=== PATIENT | female | born 1965 | race Caucasian/White ===

== ENCOUNTER 2017-11-19 19:14 | Inpatient (IN) | payer OTHER ==
[~2017-11-19] VITALS: Ht 154.9 cm; Wt 46.7 kg
--- NOTE | 2017-11-19 19:38 | ED PSYCHIATRIC COMPLAINT ---
See Addendum History of Present Illness General Chief Complaint: ETOH/Drug Related Complaint Stated Complaint: ?OVERDOSE ON BACLOPHEN AND ALCOHOL Source: patient, family, old records Exam Limitations: intoxication Vital Signs & Intake/Output Vital Signs & Intake/Output Vital Signs Date Time Temp Pulse Resp B/P B/P Pulse O2 O2 Flow FiO2 Mean Ox Delivery Rate 11/20 1510 97.8 92 18 138/83 97 Room Air 11/20 1220 98.9 107 16 143/85 96 Room Air 11/20 1009 98.2 95 18 143/87 98 Room Air 11/20 0801 98.6 96 18 133/83 11/20 0801 98.6 96 18 133/83 98 Room Air 11/20 0606 98.3 92 18 102/57 98 Room Air 11/20 0016 97.4 84 20 105/59 94 Room Air 11/19 2157 98.4 83 18 138/77 95 Room Air 11/19 1920 152/94 11/19 1917 97.2 97 15 150/101 95 Room Air ED Intake and Output 11/20 0000 11/19 1200 Intake Total Output Total 800 Balance -800 Output, Urine 800 Patient 110 lb Weight Weight Reported by Patient Measurement Method Reconcile Medications Baclofen 10 MG TABLET 1 TAB PO TID PAIN CONTROL (Reported) Bupropion HCl (Bupropion XL) 150 MG TAB.ER.24H 300 MG PO DAILY MOOD STABILITY (Reported) Escitalopram Oxalate 20 MG TABLET 1 TAB PO D MOOD STABILITY (Reported) Lidocaine 5 % ADH..PATCH 1 UNIT TOP DAILY PAIN CONTROL (Reported) Metoprolol Tartrate 50 MG TABLET 1 TAB PO DAILY AC HEART HEALTH (Reported) Mirabegron (Myrbetriq) 25 MG TAB.ER.24H 1 TAB PO DAILY BLADDER HEALTH ( Reported) Pregabalin (Lyrica) 150 MG CAPSULE 1 CAP PO BID PAIN CONTROL (Reported) Triage Note: PT BROUGHT TO ED BY WITH QUESTION OF BACLOFEN OVERDOSE. STATES BOTTLE FILLED TWO WEEKS AGO WITH 90 TABLETS IS EMPTY. PT ADMITS TO ETOH USE TODAY. DENIES SI. HX SI ATTEMPTS IN THE PAST. Triage Nurses Notes Reviewed? yes HPI: Patient is having increasing depression and thoughts of for assistance. Patient is suicidal ideations. Patient has been sober for the past few months but recently started drinking again. Patient was prescribed 90 baclofen 2 weeks ago and the noticed that the bottle was empty today. Patient just feels that she does not deserve to live anymore. Patient denies any homicidal ideations. Patient injured her back when she jumped off the roof back in May. (Ju CHEUNG,Mario Gonzalez) Allergies Coded Allergies: erythromycin base (Intermediate, GI DISTRESS 11/20/17) (Gale CHEUNG,Parth Danielle) Past History Travel History Traveled to [place] past 21 day No Medical History Any Pertinent Medical History? see below for history Cardiovascular: hypertension History of MRSA: No History of VRE: No History of CDIFF: No Surgical History Surgical History: non-contributory Psychosocial History Who do you live with Family Services at Home None What is your primary language Cook Islander Tobacco Use: Never used ETOH Use: heavy use Family History Hx Contributory? No (Ju CHEUNG,Mario Gonzalez) Review of Systems Review of Systems Constitutional: Reports: no symptoms. EENTM: Reports: no symptoms. Respiratory: Reports: no symptoms. Cardiovascular: Reports: no symptoms. GI: Reports: no symptoms. Genitourinary: Reports: no symptoms. Musculoskeletal: Reports: no symptoms. Skin: Reports: no symptoms. Neurological/Psychological: Reports: see HPI, depressed. Hematologic/Endocrine: Reports: no symptoms. Immunologic/Allergic: Reports: no symptoms. All Other Systems: Reviewed and Negative (Ju CHEUNG,Mario Gonzalez) Physical Exam Physical Exam General Appearance: well developed/nourished, alert, awake, anxious, moderate distress, intoxicated Head: atraumatic Eyes: Bilateral: PERRL, EOMI. Ears, Nose, Throat: normal pharynx, normal ENT inspection, hearing grossly normal Neck: normal inspection, supple, full range of motion Respiratory: normal breath sounds, chest non-tender, no respiratory distress, lungs clear Cardiovascular: regular rate/rhythm, normal peripheral pulses Gastrointestinal: normal bowel sounds, soft, non-tender Extremities: normal range of motion Neurological/Psychiatric: no motor/sensory deficits, agitated, alert, oriented x 3 Appearance/Memory/Insight: appropriate appearance, appropriate insight Behavoir/Eye Contact/Speech: cooperative, normal speech, good eye contact Thoughts/Hallucinations: normal thought pattern, no apparent hallucination Skin: intact, normal color, warm/dry SAD PERSONS Done? CRISIS CONSULT OBTAINED (Ju CHEUNG,Mario Gonzalez) Progress Differential Diagnosis: drug intoxication, drug overdose, drug withdrawal, electrolyte abnormality Plan of Care: Orders Procedure Date/time Status Regular Diet 11/20 B Active Alternative Nursing Therapy 11/20 08 Active Continuous Observation Monitor 11/19 1937 Active ED CRISIS PSYCH CONSULT 11/19 1937 Active EKG 11/19 1922 Active ACETOMINOPHEN 11/19 1917 Complete SALICYLATE 11/19 1917 Complete URINE DRUG SCREEN FOR ER ONLY 11/20 1915 Complete ETHANOL 11/20 1915 Complete COMPREHENSIVE METABOLIC PANEL 11/20 1915 Complete CBC WITHOUT DIFFERENTIAL 11/20 1915 Complete Laboratory Tests 11/19/172046: Urine Opiates Screen < 100, Methadone Screen 59, Barbiturate Screen < 60, Ur Phencyclidine Scrn < 6.00, Amphetamines Screen 179, U Benzodiazepines Scrn < 85, Urine Cocaine Screen < 50, Urine Cannabis Screen < 5.00 11/19/171929: Serum Alcohol 352.0 11/19/171929: Anion Gap 21 H, Estimated GFR > 60, BUN/Creatinine Ratio 16.7, Glucose 111 H, Calcium 9.6, Total Bilirubin 0.3, AST 57 H, ALT 41, Alkaline Phosphatase 92, Total Protein 8.3 H, Albumin 5.4 H, Globulin 2.9, Albumin/Globulin Ratio 1.9, CBC w Diff NO MAN DIFF REQ, RBC 4.55, MCV 91.5, MCH 31.0, MCHC 33.8, RDW 14.7 H , MPV 8.1, Gran % 76.2 H, Lymphocytes % 19.7 L, Monocytes % 3.3, Eosinophils % 0.5, Basophils % 0.3, Absolute Granulocytes 10.7 H, Absolute Lymphocytes 2.8, Absolute Monocytes 0.5, Absolute Eosinophils 0.1, Absolute Basophils 0, Salicylates < 1.0, Acetaminophen < 10.0 L Initial ED EKG: NSR, no ST T wave changes Hand-Off Endorsed To: Parth Hopkins DO Endorsed Time: 0700 Pending: consult (CRISIS) (Ju CHEUNG,Mario Gonzalez) Comments: 11/20/2017 7:27:11 AM patient signed out to me (not Dr. 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 11/20/2017 8:00:59 AM crisis will be able to evaluate champ within the next 15-20 minutes. They have requested a breathalyzer. 11/20/2017 10:47:43 AM according to crisis, patient will require inpatient treatment. Awaiting bed availability in the inpatient psychiatry [facility]. (Gale CHEUNG,Parth Danielle) Departure Departure Disposition: STILL A PATIENT Condition: Stable Clinical Impression Primary Impression: Depression Secondary Impressions: Suicidal ideation Referrals: Carlos Alberto Durham MD (PCP/Family) Departure Forms: Customer Survey General Discharge Information (Ju CHEUNG,Mario Gonzalez) Departure Comments 11/20/17 PATIENT SIGNED OUT TO ME BY DR MCDUFFIE. PENDING [facility]. (Parth Hopkins DO)
[2017-11-19 20:02] LABS: ABSOLUTE BASOPHIL COUNT 0 /CUMM (0.0-0.2); ABSOLUTE EOSINOPHIL COUNT 0.1 /CUMM (0.0-0.7); ABSOLUTE GRANULOCYTE CT 10.7 /CUMM (1.4-6.5); ABSOLUTE LYMPH COUNT 2.8 /CUMM (1.2-3.4); ABSOLUTE MONOCYTE COUNT 0.5 /CUMM (0.10-0.60); BASOPHIL % 0.3 % (0.0-2.0); EOSINOPHIL % 0.5 % (0-5); GRANULOCYTE % 76.2 % (42.2-75.2); HEMATOCRIT 41.6 % (37-47); MEAN CORPUSCULAR HGB CONC 33.8 G/DL (33.0-37.0); MEAN CORPUSCULAR VOLUME 91.5 FL (81.0-99.0); MEAN PLATELET VOLUME 8.1 FL (7.4-10.4); PLATELET COUNT 395 /CUMM (130-400); RBC DISTRIBUTION WIDTH 14.7 % (11.5-14.5); RED BLOOD CELL CT 4.55 /CUMM (4.20-5.40)
[2017-11-19] MEDS ORDERED: BACLOFEN10 M1 PO (20:07)
[2017-11-19] MEDS ORDERED: BUPROPION XL150 MG PO (20:08)
[2017-11-19] MEDS ORDERED: LYRICA150 M1 PO (20:09)
[2017-11-19] MEDS ORDERED: LIDOCAINE1 EACH TOP (20:09)
[2017-11-19] MEDS ORDERED: ESCITALOPRAM OX20 MG PO (20:09)
[2017-11-19] MEDS ORDERED: MYRBETRIQ25 M1 PO (20:10)
[2017-11-19] MEDS ORDERED: METOPROLOL TART50 M1 PO (20:11)
[2017-11-20 08:01] VITALS: BP 133/83
--- NOTE | 2017-11-20 10:41 | ED PSYCH CRISIS CONSULTATION ---
Crisis Consult Basic Assessment Date of Consult: 11/20/17 Responsible Person/Accompanied By: self/ Jadiel Insurance Authorization: Insurance #1: Insurance name: SVEN SHEEHAN Phone number: Policy number: [id number] Group number: [id number] Authorization number: ED Provider: Patient's ED Provider: Parth Beasley MD Primary Care Physician: Patient's PCP: Carlos Alberto Durham MD PCP's Current Psychiatrist: Elizabeth Owens MD [phone] Chief Complaint: ETOH/Drug Related Complaint Patient's Quote: I'm feeling really bad about myself" Present Illness: Pt is a 52 yo female presenting to [place] ED last evening accompanied by her . Pt was intoxicated (BAL:351) and has questionably overdosed on her baclofin medication. Pt was prescribed 90 pills 2 weeks ago and when came home yesterday she appeared incoherent and the baclofin pill bottle was empty. Pt reports increased depression, SI and feeling hopeless and helpless. Pt reports not knowing why she isn't happy and states"I'm just feeling bad about myself". Pt reports recent back surgery and rehabilitation due to falling off a roof in May 2017. Pt reports this was a suicide attempt. Pt reports prior inpatient tx for alcohol and opiate detox since 2004 with admissions to [facility]; [facility] and [facility]. Pt has recently begun tx with outpatient psychiatrist Elizabeth Owens and has previously been prescribed Lexapro, Wellbutrin; Xanax and Buspar. Pt reports yesterday was her first etoh use since May 2017. Pt reports her daughters and are supportive. 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 Pt denies HI/AH/VH. Pt presents as tearful, anxious, engaged and OX3, Case reviewed with Dr Harrington. Recommendation for inpatient psychiatric treatment. Pt is in agreement with plan and has signed voluntary form for admission to [facility]. Patient's Address: [address] [place] [address] Other Phone Number: Who Do You Live With? Family Family/Informants Interviewed: Collateral provided by Jadiel [phone]. He reports concern that pt has been abusing her pain medication and using etoh. Questions whether overdose is suicide attempt. Reports pt intentionally fell off house in May 2017 and has required back surgery and rehabs since. He reports pt is depressed and has hx of drug and etoh addiction. Recommends pt receive inpatient psychiatric tx. Allergies - Coded Allergies: erythromycin base (Intermediate, GI DISTRESS 11/20/17) Current Medications - Scheduled Medications Baclofen 10 MG TABLET 1 TAB PO TID PAIN CONTROL #90 (Reported) Entered as Reported by Diann Horton on 11/19/17 2007 Bupropion HCl (Bupropion XL) 150 MG TAB.ER.24H 300 MG PO DAILY MOOD STABILITY #30 (Reported) Entered as Reported by Diann Horton on 11/19/172007 Escitalopram Oxalate 20 MG TABLET 1 TAB PO D MOOD STABILITY #14 (Reported) Entered as Reported by Dainn Horton on 11/19/172008 Lidocaine 5 % ADH..PATCH 1 UNIT TOP DAILY PAIN CONTROL #30 (Reported) Entered as Reported by Diann Horton on 11/19/172008 Metoprolol Tartrate 50 MG TABLET 1 TAB PO DAILY AC HEART HEALTH #30 (Reported ) Entered as Reported by Diann Horton on 11/19/172010 Mirabegron (Myrbetriq) 25 MG TAB.ER.24H 1 TAB PO DAILY BLADDER HEALTH #90 ( Reported) Entered as Reported by Diann Horton on 11/19/172009 Pregabalin (Lyrica) 150 MG CAPSULE 1 CAP PO BID PAIN CONTROL #60 (Reported) Entered as Reported by Diann Horton on 11/19/172008 Laboratory Results: Laboratory Tests 11/19/172046: Urine Opiates Screen < 100, Methadone Screen 59, Barbiturate Screen < 60, Ur Phencyclidine Scrn < 6.00, Amphetamines Screen 179, U Benzodiazepines Scrn < 85, Urine Cocaine Screen < 50, Urine Cannabis Screen < 5.00 11/19/171929: Serum Alcohol 352.0 11/19/171929: Anion Gap 21 H, Estimated GFR > 60, BUN/Creatinine Ratio 16.7, Glucose 111 H, Calcium 9.6, Total Bilirubin 0.3, AST 57 H, ALT 41, Alkaline Phosphatase 92, Total Protein 8.3 H, Albumin 5.4 H, Globulin 2.9, Albumin/Globulin Ratio 1.9, CBC w Diff NO MAN DIFF REQ, RBC 4.55, MCV 91.5, MCH 31.0, MCHC 33.8, RDW 14.7 H , MPV 8.1, Gran % 76.2 H, Lymphocytes % 19.7 L, Monocytes % 3.3, Eosinophils % 0.5, Basophils % 0.3, Absolute Granulocytes 10.7 H, Absolute Lymphocytes 2.8, Absolute Monocytes 0.5, Absolute Eosinophils 0.1, Absolute Basophils 0, Salicylates < 1.0, Acetaminophen < 10.0 L Past History Past Medical History Cardiovascular: hypertension Renal: neurogenic bladder Musculoskeletal: chronic back pain Past Surgical History Surgical History: non-contributory Psychosocial History Strengths/Capabilities: Has family/friend support, Physical Limitations (Interventions): n/a Psychiatric Treatment History Psych Treatment Psychiatric Treatment Yes Inpatient Treatment Yes Outpatient Treatment Yes Location of Treatment [facility] Reason for Treatment Detox; depression Response to Treatment pt continues to struggle with substance use Diagnosis by History: Depression Etoh polysubstance abuse Substance Use/Abuse History Drug Use/Abuse Substances Used/Abused Yes Substance Used/Abused Alcohol Last Used yesterday How much used/taken unknown quantity How often yesterday first use since May 2017 Substance Abuse Treatment Substance Abuse Treatment Past Substance Abuse TX Yes Inpatient Treatment Yes Outpatient Treatment Yes Location of Treatment [facility]; [facility] Reason for Treatment ETOH; Opitaes; Benzos Dates of Treatment since 2004 Response to Treatment pt continues to struggle with etoh and substances Comments: pt reports masood time etoh use yesterday since May 2017 Current Mental Status Mental Status Orientation: Person, Place, Situation Affect: Depressed, Hopeless, Sad Speech: WNL Neuro-vegetative: Anhedonia, Appetite Decreased, Concentration Poor, Energy Decreased, Helpless, Loss of Interest, Sleep Disturbance Appearance Appearance- Dress/Hygiene: pt in hospital scrubs; disheveled; tearful; laying in hospital bed; good eye contact Behaviors Thought Process: WNL Thought Content: WNL Memory: WNL Insight: Fair SI/HI Risk Assessment Past Suicidal Ideation/Attempts Yes Current Suicidal Ideation/Att Yes Past Homicidal Ideation/Att: No Current Homicidal Ideation/Attempts No Degree of Intent: Thoughts/No Intent Danger To: Self Gravely Disabled: Lack of Insight, Poor Impulse Control, Poor Judgment Risk Factors: chronic/serious med cond., high anxiety/distress, history of suicide atmpts, SA/MH hospitalized, substance abuse, poor impulse control Lethality Ratin PTSD Checklist PTSD Done? patient declined ED Management Sitter: Yes Restraints: No DSM5/PS Stressors/Medical Prob Diagnosis' (DSM 5, Stressors, Medical): Unspecified Depression F32.9 Alcohol Use D/O F10.20 Hx of opiate abuse recent back surgery Current GAF: 20 Comments: pt reports feeling hopeless and helpless not knowing why. Pt admits to SI with recent suicide attempt (May 2017). Departure Disposition Psych Medical Clearance Date: 11/20/17 Medically Cleared at: 0900 Time Started: 0900 Time Ended: 944 Psychiatrist Consulted: Bandar Harrington MD Date Disposition Established: 11/20/17 Time Disposition Established: 1045 Plan for Disposition - Modality: Inpatient Psychiatry Facility: [facility] Rationale for Disposition: Mood Stabilization; medication assessment Type of IP Admission: Voluntary Referrals Herminio CHEUNG,Carlos Alberto (PCP/Family)
--- NOTE | 2017-11-20 16:20 | IP CRISIS DIAG ASSESS PSYCH ---
Diagnostic Assessment Basic Assessment Insurance Authorization: Insurance #1: Insurance name: SVEN SHEEHAN Phone number: Policy number: [id number] Group number: [id number] Authorization number: [id number] approved for 1 unit UR will contact [facility] tomorrow for concurrent review Primary Care Physician: Patient's PCP: Carlos Alberto Durham MD PCP's Patient's Quote: I'm feeling really bad about myself" Present Illness: Pt is a 52 yo female presenting to [place] ED last evening accompanied by her . Pt was intoxicated (BAL:351) and has questionably overdosed on her baclofin medication. Pt was prescribed 90 pills 2 weeks ago and when came home yesterday she appeared incoherent and the baclofin pill bottle was empty. Pt reports increased depression, SI and feeling hopeless and helpless. Pt reports not knowing why she isn't happy and states"I'm just feeling bad about myself". Pt reports recent back surgery and rehabilitation due to falling off a roof in May 2017. Pt reports this was a suicide attempt. Pt reports prior inpatient tx for alcohol and opiate detox since 2004 with admissions to [facility]; [facility] and [facility]. Pt has recently begun tx with outpatient psychiatrist Elizabeth Owens and has previously been prescribed Lexapro, Wellbutrin; Xanax and Buspar. Pt reports yesterday was her first etoh use since May 2017. Pt reports her daughters and are supportive. 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 Pt denies HI/AH/VH. Pt presents as tearful, anxious, engaged and OX3, Case reviewed with Dr Harrington. Recommendation for inpatient psychiatric treatment. Pt is in agreement with plan and has signed voluntary form for admission to [facility]. Patient's Address: [address] [place] [address] Other Phone Number: Who Do You Live With? Family Feel Safe Where You Live? Yes Feel Safe in Your Relationship Yes Marital Status: Do You Have Children? Yes Ages? 28,25 Primary Language? Finnish Language(s) Spoken At Home: Finnish Family/Informants Interviewed: Collateral provided by Jadiel . He reports concern that pt has been abusing her pain medication and using etoh. Questions whether overdose is suicide attempt. Reports pt intentionally fell off house in May 2017 and has required back surgery and rehabs since. He reports pt is depressed and has hx of drug and etoh addiction. Recommends pt receive inpatient psychiatric tx. Allergies - Coded Allergies: erythromycin base (Intermediate, GI DISTRESS 11/20/17) Current Medications - Scheduled Medications Baclofen 10 MG TABLET 1 TAB PO TID PAIN CONTROL #90 (Reported) Entered as Reported by Diann Horton on 11/19/17 2007 Bupropion HCl (Bupropion XL) 150 MG TAB.ER.24H 300 MG PO DAILY MOOD STABILITY #30 (Reported) Entered as Reported by Diann Horton on 11/19/172007 Escitalopram Oxalate 20 MG TABLET 1 TAB PO D MOOD STABILITY #14 (Reported) Entered as Reported by Diann Horton on 11/19/172008 Lidocaine 5 % ADH..PATCH 1 UNIT TOP DAILY PAIN CONTROL #30 (Reported) Entered as Reported by Diann Horton on 11/19/172008 Metoprolol Tartrate 50 MG TABLET 1 TAB PO DAILY AC HEART HEALTH #30 (Reported ) Entered as Reported by Diann Horton on 11/19/17 2011 Mirabegron (Myrbetriq) 25 MG TAB.ER.24H 1 TAB PO DAILY BLADDER HEALTH #90 ( Reported) Entered as Reported by Diann Horton on 11/19/17 2010 Pregabalin (Lyrica) 150 MG CAPSULE 1 CAP PO BID PAIN CONTROL #60 (Reported) Entered as Reported by Diann Horton on 11/19/172008 Consequences of Psych Med Use: pt reports 1st session last week with new psychiatrist Elizabeth Owens MD Lab Results: Laboratory Tests 11/19/172046: Urine Opiates Screen < 100, Methadone Screen 59, Barbiturate Screen < 60, Ur Phencyclidine Scrn < 6.00, Amphetamines Screen 179, U Benzodiazepines Scrn < 85, Urine Cocaine Screen < 50, Urine Cannabis Screen < 5.00 11/19/171929: Serum Alcohol 352.0 11/19/171929: Anion Gap 21 H, Estimated GFR > 60, BUN/Creatinine Ratio 16.7, Glucose 111 H, Calcium 9.6, Total Bilirubin 0.3, AST 57 H, ALT 41, Alkaline Phosphatase 92, Total Protein 8.3 H, Albumin 5.4 H, Globulin 2.9, Albumin/Globulin Ratio 1.9, CBC w Diff NO MAN DIFF REQ, RBC 4.55, MCV 91.5, MCH 31.0, MCHC 33.8, RDW 14.7 H , MPV 8.1, Gran % 76.2 H, Lymphocytes % 19.7 L, Monocytes % 3.3, Eosinophils % 0.5, Basophils % 0.3, Absolute Granulocytes 10.7 H, Absolute Lymphocytes 2.8, Absolute Monocytes 0.5, Absolute Eosinophils 0.1, Absolute Basophils 0, Salicylates < 1.0, Acetaminophen < 10.0 L Toxicology Screen Completed? Yes Results: negative Symptoms of Use: Pt with hx of etoh and opiate abuse Past History Past Surgical History Surgical History BACK SURGERY Abuse/Trauma History Trauma History/Current Trauma: Denies Legal History Current Legal Status: none Have you ever been arrested? No Psychosocial History Strengths/Capabilities: Has family/friend support, Physical Limitations (Interventions): n/a Psychiatric Treatment History Psych Treatment Psychiatric Treatment Yes Inpatient Treatment Yes Outpatient Treatment Yes Location of Treatment [facility] Reason for Treatment Detox; depression Response to Treatment pt continues to struggle with substance use Diagnosis by History: Depression Etoh polysubstance abuse Risk Factors: chronic/serious med cond., high anxiety/distress, history of suicide atmpts, SA/MH hospitalized, substance abuse, poor impulse control Substance Use/Abuse History Drug Use/Abuse minimum 12mo Hx Substances Used/Abused Yes Substance Used/Abused Alcohol Last Used yesterday How much used/taken unknown quantity How often yesterday first use since May 2017 Substance Abuse Treatment Substance Abuse Treatment Past Substance Abuse TX Yes Inpatient Treatment Yes Outpatient Treatment Yes Location of Treatment [facility]; [place] Reason for Treatment ETOH; Opitaes; Benzos Dates of Treatment since 2004 Response to Treatment pt continues to struggle with etoh and substances Comments: pt reports etoh relapse yesterday. Ist use since May 2017. Education History Highest Level of Education: bachelor's degree Preferred Learning Style: visual, auditory, experiential Current Mental Status Mental Status Orientation: Person, Place, Situation Affect: Depressed, Hopeless, Sad Speech: WNL Neuro-vegetative: Anhedonia, Appetite Decreased, Concentration Poor, Energy Decreased, Helpless, Loss of Interest, Sleep Disturbance Appearance Appearance- Dress/Hygiene: pt in hospital scrubs; disheveled; tearful; laying in hospital bed; good eye contact Behaviors Thought Process: WNL Thought Content: WNL Memory: WNL Insight: Fair SI/HI Risk Assessment - Minimum 6mo History- Past Suicidal Ideation/Attempts Yes Current Suicidal Ideation/Att Yes Past Homicidal Ideation/Att: No Current Homicidal Ideation/Attempts No Degree of Intent: Thoughts/No Intent Danger To: Self Gravely Disabled: Lack of Insight, Poor Impulse Control, Poor Judgment Risk Factors: chronic/serious med cond., high anxiety/distress, history of suicide atmpts, SA/MH hospitalized, substance abuse, poor impulse control Lethality Ratin Needs/Init TX Plan/Goals: Psychiatric Evaluation Medication Assessment Individual, Family and Group Meetings Coordinated Discharge Planning AUDIT-C Questionnaire: AUDIT-C Questionnaire: Response Value ETOH use in the past year 4 or more per week 4 # drinks typical/day 10 or more 4 6 or > drinks per occasion Daily/Almost Daily 4 Total 12 DSM5/PS Stressors/Medical Prob Diagnosis' (DSM 5, Stressors, Medical): Unspecified Depression F32.9 Alcohol Use D/O F10.20 Hx of opiate abuse recent back surgery Current GAF: 20 Comments: pt reports feeling hopeless and helpless not knowing why. Pt admits to SI with recent suicide attempt (May 2017).
[2017-11-20 16:51] VITALS: BP 143/76
[2017-11-20 16:56] VITALS: BP 143/76
[2017-11-20 19:53] VITALS: BP 133/91
[2017-11-20 19:56] VITALS: BP 133/91
[2017-11-20 23:14] VITALS: BP 112/70
[2017-11-21] VITALS (8 sets, daily range): BP systolic 107–135; BP diastolic 62–75
--- NOTE | 2017-11-21 15:18 | SOCIAL WORKER PROG NOTE PSYCH ---
Social Work Progress Note Progress Note Patient presents with a walker as her gait is a little unsteady. She reports increased anxiety for the last few days. She seems to be experiencing some panic symptoms with shortness of breath and tightness in her chest. She talked about how several years ago (about 15 years) she was diagnosed with Lyme Disease. She reports this is when alot of her problems started. She became addicted to pain meds due to issues surrounding her condition. She shared that she has a hx of alcoholism and has been in various rehabs. She thinks the last residential tx facility was about 2 years ago. She has suffered with some depression and anxiety, although she is not in therapy on a outpatient basis. Her PCP has been prescribing her anti-depressants. She shared that she tried to kill herself in May. She had been using and felt immense guilt and couldn't face her family, so she decided to jump off the roof of her house 20 ft down. She broke her back and fractured other bones as well. She is in pain and walks with a craig or walker at home. She finds it difficult to complete tasks at home and feels slowed down in life due to all of her medical issues. She said she was in pain and ran out of Tylenol and decided to take extra Baclofen. She initially said she took 4, but then later said she didn't know how many she actually took. She reported she then drank alcohol. Reports she was only trying to stop the pain and that she wanted to "ease her existance." She denies she was trying to end her life. She reports she was sober for 2 years from alcohol prior to this incident. She denies SI today. Denies HI. Denies AH/VH. Reports sadness and alot of anxiety. She is nervous about her and 2 adult children berating her over this. She is open to a family meeting. She doesn't know if she wants to have all of them in or just her . She appears a little afraid of her 's reaction. Her goal for being here is to "heal my mind." She is currently unemployed. Enjoys gardening, cooking and reading. Called Greg [phone] to leave updated clinical information for review today.
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
[2017-11-22] VITALS (8 sets, daily range): BP systolic 94–133; BP diastolic 70–82
--- NOTE | 2017-11-22 10:50 | CP SOUTH PROGRESS NOTE PSYCH ---
Psych (Inpt) Progress Note Progress Note Include the following elements, when applicable: Involvement in the active treatment of the patient with behavioral observations of the patient and the patient's response to the treatment. Review of the ongoing treatment process in the context of the treatment plan. Indication of how multi-disciplinary staff members are carrying out the treatment plan. Plans for future interventions and recommendations for revision of the treatment plan. Liaison with other physicians/providers. Progress Note: I discussed this patient's progress to date, current mental status, treatment process in the context of the treatment plan, and discharge planning with staff/ team in the daily morning inpatient team meeting. I also met with the patient myself in individual session. A total of 15 minutes was spent with the patient with more than 50% spent in counseling and/or coordination of care. SUBJECTIVE: "I'm not suicidal, but sometimes I feel like I have another person in my head. Sometimes it's like I'm part my good sister, and part my bad sister. " OBJECTIVE: Current Medications Sig/Greg Start time Last Medication Dose Route Stop Time Status Admin Acetaminophen 650 MG Q4P PRN 11/20 1730 AC PO Al Hydroxide/Mg 30 ML Q4-6 PRN PRN 11/20 1730 AC Hydroxide PO Duloxetine HCl 40 MG 11/22 09 AC 11/22 PO 0813 Escitalopram Oxalate 20 MG 11/21 0800 DC 11/21 PO 0834 Gabapentin 600 MG Q4 HRS NEEDED PRN 11/20 1730 AC 11/22 PO 0813 Ibuprofen 600 MG Q4P PRN 11/20 1730 AC 11/22 PO 0939 Lorazepam 1 MG Q6-PRN PRN 11/21 1615 AC 11/21 PO 11/23 2300 1623 Lorazepam 1.5 MG 2100 11/20 2100 DC 11/20 PO 2317 Lorazepam 2 MG Q4 HRS NEEDED PRN 11/20 1730 AC 11/21 PO 0911 Lorazepam 1 MG Q4 HRS NEEDED PRN 11/20 1730 AC PO Magnesium Hydroxide 30 ML AT BEDTIME PRN 11/20 1730 AC PO Metoprolol Succinate 50 MG DAILY 11/21 0900 AC 11/22 PO 0813 Mirabegron 25 MG 0911/22 0900 AC 11/22 PO 0938 Mirabegron 25 MG 1030 11/21 1030 DC 11/21 PO 1131 Pregabalin 100 MG BID 11/20 2099 AC 11/22 PO 0814 Trazodone HCl 50 MG AT BEDTIME 11/20 2099 AC 11/21 PO 2117 Laboratory Tests 11/22 0557 Chemistry Hemoglobin A1c (4.2 - 5.8 %) 5.2 Triglycerides (<150 mg/dL) 75 Cholesterol (<200 MG/DL) 195 LDL Cholesterol, Calc (65 - 129 mg/dL) 121 HDL Cholesterol (40 - 60 mg/dL) 59 Cholesterol/HDL Ratio (0.00 - 4.23 %) 3 TSH (0.270 - 4.200 uIU/mL) 2.710 Vital Signs Date Time Temp Pulse Resp B/P B/P Pulse O2 O2 Flow FiO2 Mean Ox Delivery Rate 11/22 0813 70 9411/22 0812 97.9 70 9411/22 0811 97.9 70 9470 11/21 2010 97.7 84 135/70 11/21 2006 97.7 84 135/70 11/21 1608 78 135/75 11/21 1606 78 135/75 11/21 1238 72 107/69 11/21 1218 72 107/ ASSESSMENT: Patient presents today calm and pleasant. Depression and anxiety continue. Today will start cymbalta for depression, anxiety, pain. States she slept well last night, no nightmares. Patient reports infrequent nightmares in the past. He appetite is fine, she is participating in community activities, her concentration is good. Depression:5/10; Anxiety:7/10 (with 10 the worst.) Denies suicidal ideation, homicidal ideation, auditory hallucinations, visual hallucinations, paranoid ideation. Speech is well articulated, goal-directed, average in rate, volume and tone. The patient understands the risks/benefits/side effects of the medication and is agreeable to continue taking them. PLAN: 1. Continue cymbalta. 2. Lorazepam prn anxiety for next two days, as she recovers from drinking. Patient is aware that lorazepam is a temporary medication only for the next couple of days. Continue with other current management as patient is improving. Continue to provide support and encouragement.
--- NOTE | 2017-11-22 10:54 | History & Physical ---
General Information and HPI MD Statement: I have seen and personally examined YAN PRABHAKAR and documented this H&P. The patient is a 52 year old F who presented with a patient stated chief complaint of "I'm feeling really bad about myself". Source of Information: patient, family Exam Limitations: unable to give history History of Present Illness: 51-year-old female brought to the emergency room department by her with question of baclofen overdose, the bottle was noted to be empty, he also used alcohol the day of the ER visit. She has had increased depression and suicidal ideations the patient injured her back in May 2017 and she jumped off a roof in the emergency room her blood alcohol level was 351. Appreciate feels hopeless helpless. She had had no alcohol since May 2017 until the day of admission. Allergies/Medications Allergies: Coded Allergies: erythromycin base (Intermediate, GI DISTRESS 11/20/17) Home Med list Baclofen 10 MG TABLET 1 TAB PO TID PAIN CONTROL (Reported) Bupropion HCl (Bupropion XL) 150 MG TAB.ER.24H 300 MG PO DAILY MOOD STABILITY (Reported) Escitalopram Oxalate 20 MG TABLET 1 TAB PO D MOOD STABILITY (Reported) Lidocaine 5 % ADH..PATCH 1 UNIT TOP DAILY PAIN CONTROL (Reported) Metoprolol Tartrate 50 MG TABLET 1 TAB PO DAILY AC HEART HEALTH (Reported) Mirabegron (Myrbetriq) 25 MG TAB.ER.24H 1 TAB PO DAILY BLADDER HEALTH ( Reported) Pregabalin (Lyrica) 150 MG CAPSULE 1 CAP PO BID PAIN CONTROL (Reported) Compliance With Home Meds: UNKNOWN Past History Travel History Traveled to [place] past 21 day No Medical History Neurological: NONE EENT: NONE Cardiovascular: hypertension Renal: neurogenic bladder Musculoskeletal: chronic back pain Psychiatric: alcohol dependence, anxiety, depression History of MRSA: No History of VRE: No History of CDIFF: No Isolation History: Standard Surgical History Surgical History: non-contributory Past Family/Social History Psychosocial History Services at Home: None ETOH Use: heavy use Employment History Employment Unemployed Review of Systems Review of Systems Constitutional: Reports: see HPI. Exam & Diagnostic Data Last 24 Hrs of Vital Signs/I&O Vital Signs Date Time Temp Pulse Resp B/P B/P Pulse O2 O2 Flow FiO2 Mean Ox Delivery Rate 11/22 0813 70 94/70 11/22 0812 97.9 70 94/70 11/22 0811 97.9 70 94/70 11/21 2010 97.7 84 135/70 11/21 2006 97.7 84 135/70 11/21 1608 78 135/75 11/21 1606 78 135/11/21 1238 72 107/69 11/21 1218 72 107 Physical Exam General Appearance Alert, Oriented X3, Cooperative, No Acute Distress, walks with a walker. Skin No Rashes HEENT PERRLA, EOMI, Mucous Membr. moist/pink Neck Supple, No JVD, No thryomegaly, +2 Carotid Pulse wo Bruit Lymphatic Axillary nl, Cervical nl Cardiovascular Regular Rate, No Murmurs Lungs Clear to Auscultation, Normal Air Movement Abdomen Soft, No Tenderness, No Hepatospenomegaly Neurological Exam Findings: Normal Speech, Strength at 5/5 X4 Ext, Normal Tone, Sensation Intact, Cranial Nerves 3-12 NL, Reflexes 2+, gait the little abnormal do to her orthopedic problems. Cranial Nerves II through XII: Intact. Extremities No Cyanosis, No Edema, Normal Pulses Vascular Normal Pulses, Pulses Symmetrical Last 24 Hrs of Labs/Jeyson: Laboratory Tests 11/22/17 0557: Hemoglobin A1c 5.2, Triglycerides 75, Cholesterol 195, LDL Cholesterol, Calc 121 , HDL Cholesterol 59, Cholesterol/HDL Ratio 3, TSH 2.710 11/19/172046: Urine Opiates Screen < 100, Methadone Screen 59, Barbiturate Screen < 60, Ur Phencyclidine Scrn < 6.00, Amphetamines Screen 179, U Benzodiazepines Scrn < 85, Urine Cocaine Screen < 50, Urine Cannabis Screen < 5.00 11/19/171929: Serum Alcohol 352.0 11/19/171929: Anion Gap 21 H, Estimated GFR > 60, BUN/Creatinine Ratio 16.7, Glucose 111 H, Calcium 9.6, Total Bilirubin 0.3, AST 57 H, ALT 41, Alkaline Phosphatase 92, Total Protein 8.3 H, Albumin 5.4 H, Globulin 2.9, Albumin/Globulin Ratio 1.9, CBC w Diff NO MAN DIFF REQ, RBC 4.55, MCV 91.5, MCH 31.0, MCHC 33.8, RDW 14.7 H , MPV 8.1, Gran % 76.2 H, Lymphocytes % 19.7 L, Monocytes % 3.3, Eosinophils % 0.5, Basophils % 0.3, Absolute Granulocytes 10.7 H, Absolute Lymphocytes 2.8, Absolute Monocytes 0.5, Absolute Eosinophils 0.1, Absolute Basophils 0, Salicylates < 1.0, Acetaminophen < 10.0 L Laboratory Tests 11/22/17 0557: Hemoglobin A1c 5.2, Triglycerides 75, Cholesterol 195, LDL Cholesterol, Calc 121 , HDL Cholesterol 59, Cholesterol/HDL Ratio 3, TSH 2.710 Assessment/Plan As Ranked By This Provider Problem List: 1. Depression 2. Suicidal ideations 3. Alcohol intoxication Miscellaneous Miscellaneous Documentation Attending Case Discussed With: Len CHEUNG,Bandar Primary Care Physician: Carlos Alberto Durham MD Patient sees these Specialists Psychiatry Level of Patient Care: [facility] Consults Needed: Consulting Specialty: Psychiatry Consulting Physician: Dr. Good Reason for Consult: depression and suicidal ideations alcohol use
--- NOTE | 2017-11-22 15:26 | SOCIAL WORKER PROG NOTE PSYCH ---
Social Work Progress Note Progress Note Alida reported that she slept well last night. She is struggling with symptoms of anxiety today. She appears to be seeking out Ativan to help. I explained that she is on some Ativan for detox, but when she leaves she shouldn't be on a benzo. She said she understood that. Attempted to talk with her about other ways to work through her anxiety. She is practicing some meditation and doing some reading. She hasn't talked to her in the last 2 nights and is planning on speaking to him tonight. She may be more anxious due to not knowing her family's reaction at this point. Talked about having a family meeting with just her . She will give him a call and provide him with my number to set it up. She asked about d/c. I told her we are looking at next week, possibly Sunday. Encouraged her to find strength to work through this and reminded her of her resiliencies.
[2017-11-23] VITALS (7 sets, daily range): BP systolic 97–139; BP diastolic 55–90
--- NOTE | 2017-11-23 08:52 | SOCIAL WORKER PROG NOTE PSYCH ---
Social Work Progress Note Progress Note Ean Crum APRN and I met with Alida this morning. Alida reported bad anxiety this morning. She said the anxiety is worse in the morning and not as bad at night for some reason. Reports she slept well. Appetite is good, concentration good. Rates her depressive symptoms at a 5 today 0-10, 10 being worst. Anxiety at a 6. Denies any SI. She said she wouldn't feel safe to leave the hospital today. She said she feels an urge to use narcotics. Denies cravings for alcohol. Reports her heart is pounding and she can hear it which is disturbing to her. Lexapro was changed to Cymbalta. She seems to be tolerating the change so far and Ean Crum APRN may increase it today. Wellbutrin has been discontinued. Ean Crum APRN talked about trying Naltexone. She was pleased with that and almost tearful. She said she will hope that will help with the constant thoughts about using pills. She mentioned talking to her last night and her is hoping for her to continue treatment after this. We talked about her doing an IOP. She says she has never done this level of care. She doesn't know how she would get there, because she doesn't really drive. I told her we could discuss this at the family meeting. Offered to call her , since he didn't contact me yesterday. She agreed to sign a release and have me call him. Left Mr. Malloy [phone] a voicemail inviting him in for a meeting. Talked to Alida about meeting with Destini Brewer peer erp specialist today while she is on the unit. Alida was open to this meeting. Mr. Malloy called and we ended having a phone conference with Alida. Eanignacio Crum APRN was present for the first half of this meeting. Mr. Malloy expressed concern over her not being trusted. He reported that Alida isn't supposed to drive, but she will call a taxi or take a spare thomas and find her way to the package store. He doesn't believe that she's been sober for the last few months. He seems to think she was drinking recently when in [place] at her parent's home and he doesn't believe she was taking her Baclofen as prescribed. He thinks the overdose was intentional to kill herself because she was talking to him on the way to the ER about why he doesn't just "let her go." He is worried about her coming home and being by herself while he is a work. He said he feels like the only way to stop her from doing anything is to "chain her up in the basement." I looked at Alida and she was mouthing quietly "he would do that." Alida got very quiet and very tearful during this discussion. She shut down and did not want to contribute anything to the meeting. Her did say that she would be able to get to IOP with an Uber. I told him we would discuss d/c next week. Alida had nothing to say. After hanging up with her I checked in about how she was feeling. She didn't want to talk about it and said she wasn't ready to talk about things. She asked if she could come to me when she felt ready. I told her yes and that I would be back next Sunday. Review done with Greg. Authorized 4 units with review on 11/27.
--- NOTE | 2017-11-23 10:31 | CP SOUTH PROGRESS NOTE PSYCH ---
Psych (Inpt) Progress Note Progress Note Include the following elements, when applicable: Involvement in the active treatment of the patient with behavioral observations of the patient and the patient's response to the treatment. Review of the ongoing treatment process in the context of the treatment plan. Indication of how multi-disciplinary staff members are carrying out the treatment plan. Plans for future interventions and recommendations for revision of the treatment plan. Liaison with other physicians/providers. Progress Note: I discussed this patient's progress to date, current mental status, treatment process in the context of the treatment plan, and discharge planning with staff/ team in the daily morning inpatient team meeting. I also met with the patient myself in individual session. A total of 15 minutes was spent with the patient with more than 50% spent in counseling and/or coordination of care. SUBJECTIVE: "I always have urges for narcotics." OBJECTIVE: Current Medications Sig/Greg Start time Last Medication Dose Route Stop Time Status Admin Acetaminophen 650 MG Q4P PRN 11/20 1730 AC PO Al Hydroxide/Mg 30 ML Q4-6 PRN PRN 11/20 1730 AC Hydroxide PO Duloxetine HCl 40 MG 11/22 09 AC 11/23 PO 15 Escitalopram Oxalate 10 MG 11/23 1015 AC PO Gabapentin 600 MG .STK-MED ONE 11/22 1215 DC PO 11/22 1216 Gabapentin 600 MG Q4 HRS NEEDED PRN 11/20 1730 AC 11/22 PO 1215 Ibuprofen 600 MG Q4P PRN 11/20 1730 AC 11/22 PO 0939 Lorazepam 1 MG Q6-PRN PRN 11/21 1615 AC 11/23 PO 11/23 2300 0917 Lorazepam 2 MG Q4 HRS NEEDED PRN 11/20 1730 AC 11/21 PO 0911 Lorazepam 1 MG Q4 HRS NEEDED PRN 11/20 1730 AC PO Magnesium Hydroxide 30 ML AT BEDTIME PRN 11/20 1730 AC PO Metoprolol Succinate 50 MG DAILY 11/21 899 AC 11/23 PO 0915 Mirabegron 25 MG 11/22 0900 AC 11/23 PO 0915 Naltrexone HCl 50 MG 11/23 1015 AC PO Pregabalin 100 MG BID 11/20 2100 AC 11/23 PO 0915 Trazodone HCl 50 MG AT BEDTIME 11/20 2100 AC 11/22 PO 2147 Vital Signs Date Time Temp Pulse Resp B/P B/P Pulse O2 O2 Flow FiO2 Mean Ox Delivery Rate 11/23 0915 97.3 68 17 97/55 11/23 0818 68 97/55 11/23 0817 97.3 68 97/55 11/22 2022 97.4 77 133/79 11/23 2019 97.4 77 133/79 11/22 1630 78 119/82 11/22 1550 78 119/82 11/22 1210 72 110/75 11/22 1209 72 110/75 Lab ALT 41 U/L 11/19/171929 AST 57 U/L H 11/19/171929 Urine Opiates Screen < 100 NG/ML 11/19/172046 ASSESSMENT: Patient presents today calm and cooperative. Reports anxiety is worse in the morning, better in the afternoon and evening. Tolerating duloxetine well, without complaint, for continuing depression and anxiety. Will cross taper with Lexapro 10 mg. Patient reports some relief from anxiety with gabapentin. Patient reports that although she has not been taking opiates recently, she has constant cravings. States that in the past she had considered naltrexone, and would like to start naltrexone. States that she has not taken opiates in over 10 days. Depression:5/10; Anxiety:6/10 (with 10 the worst.) Denies suicidal ideation, homicidal ideation, auditory hallucinations, visual hallucinations, paranoid ideation. She reports sleeping well at night. Appetite, energy, concentration are all good. Speech is well articulated, goal-directed, average in rate, volume and tone. The patient understands the risks/benefits/side effects of the medication and is agreeable to continue taking them. PLAN: Slow but noticeable progress. 1. Continue duloxetine 40 mg. Lexapro 10 mg to cross taper from Lexapro to duloxetine. 2. Naltrexone for opioid cravings. Continue with current management as patient is improving. Continue to provide support and encouragement.
[2017-11-24] VITALS (9 sets, daily range): BP systolic 98–124; BP diastolic 61–80
--- NOTE | 2017-11-24 16:22 | CP SOUTH PROGRESS NOTE PSYCH ---
Psych (Inpt) Progress Note Progress Note Include the following elements, when applicable: Involvement in the active treatment of the patient with behavioral observations of the patient and the patient's response to the treatment. Review of the ongoing treatment process in the context of the treatment plan. Indication of how multi-disciplinary staff members are carrying out the treatment plan. Plans for future interventions and recommendations for revision of the treatment plan. Liaison with other physicians/providers. Progress Note: The patient was seen 1-1 and discussed with the unit staff. She is interacting appropriately with peers and staff members. She is participating in all the activities on the unit. The patient denies suicidal/homicidal ideation, auditory/visual hallucinations or side effects from medication. The patient's reporting anxiety. She is also reporting withdrawals from opiates. We discussed the treatment options and agreed to start clonidine 4 times a day as anxiolytic. Hydroxyzine was added to the medication regimen for the same anxiolytic properties. We will discontinue metoprolol, being that clonidine is a antihypertensive medication as well. We will continue present medication regimen, observation, symptom monitoring. The patient will be followed up daily by the unit psychiatrist.
[2017-11-25] VITALS (7 sets, daily range): BP systolic 93–100; BP diastolic 55–72
--- NOTE | 2017-11-26 06:30 | CP SOUTH PROGRESS NOTE PSYCH ---
Psych (Inpt) Progress Note Progress Note Include the following elements, when applicable: Involvement in the active treatment of the patient with behavioral observations of the patient and the patient's response to the treatment. Review of the ongoing treatment process in the context of the treatment plan. Indication of how multi-disciplinary staff members are carrying out the treatment plan. Plans for future interventions and recommendations for revision of the treatment plan. Liaison with other physicians/providers. Progress Note: Subjective: Patient reports feeling like her bladder has been spasming a little; has been continuing to straight cath. Patient reports continued high anxiety and concerns for her low blood pressure. Discussed decreasing clonidine to 3 times a day instead of 4 times a day, patient in agreement. Encouraged use of prn meds. Psychoeducation and supportive therapy provided. Patient states her mood is better than yesterday and that today is the first day she's not had any cravings and is quite happy about that. Patient denies SI/HI/AVH/SIB. Patient denies side effects to medication. No signs or symptoms of withdrawal at this time. Patient eating and sleeping well. Patient reports that and children are coming to visit today. Objective: Patient was adherent with medications and in behavioral control. Patient was able to self straight cath at 0400. Per nursing, CIWAs have been 0, BP running low. Current Medications Sig/Greg Start time Last Medication Dose Route Stop Time Status Admin Acetaminophen 650 MG .STK-MED ONE 11/25 1845 DC PO 11/25 1846 Acetaminophen 650 MG .STK-MED ONE 11/25 1317 DC PO 11/25 1318 Acetaminophen 650 MG Q4P PRN 11/20 1730 AC 11/25 PO 1848 Al Hydroxide/Mg 30 ML Q4-6 PRN PRN 11/20 1730 AC Hydroxide PO Clonidine 0.1 MG FOUR TIMES A DAY 11/24 1800 AC 11/25 PO 2155 Duloxetine HCl 40 MG 11/22 0900 AC 11/25 PO 0813 Escitalopram Oxalate 10 MG 11/23 1015 AC 11/25 PO 11/29 0901 0813 Gabapentin 600 MG Q4 HRS NEEDED PRN 11/20 1730 AC 11/25 PO 1757 Hydroxyzine HCl 50 MG .STK-MED ONE 11/25 1423 DC PO 11/25 1424 Hydroxyzine HCl 50 MG 4 TIMES/DAY PRN 11/24 1615 AC 11/25 PO 1852 Ibuprofen 600 MG Q4P PRN 11/20 1730 DC 11/22 PO 0939 [place] Carbonate 300 MG BID 11/25 1423 AC 11/25 PO 195 Lorazepam 2 MG Q4 HRS NEEDED PRN 11/20 1730 AC 11/21 PO 0911 Lorazepam 1 MG Q4 HRS NEEDED PRN 11/20 1730 AC PO Magnesium Hydroxide 30 ML AT BEDTIME PRN 11/20 1730 AC PO Mirabegron 25 MG 11/22 0900 AC 11/25 PO 0813 Naltrexone HCl 50 MG 11/23 1015 AC 11/25 PO 0813 Pregabalin 100 MG BID 11/20 2100 AC 11/25 PO 195 Trazodone HCl 50 MG AT BEDTIME 11/20 2100 AC 11/25 PO 215 Vital Signs Date Time Temp Pulse Resp B/P B/P Pulse O2 O2 Flow FiO2 Mean Ox Delivery Rate 11/25 2154 97.9 64 17 100/55 11/25 2008 97.9 64 100/55 11/26 1951 97.9 64 100/55 11/25 1757 68 93/61 11/25 1557 68 93/61 11/25 1537 68 93/61 11/25 1318 69 94/60 11/25 1238 69 /60 11/25 1230 69 MSE: General: Patient alert and oriented, well-groomed, unkempt, good eye contact, mildly anxious, no apparent distress. Speech: Moderate rate and volume, normal prosody, fluent. Motor: No tics, tremors, stereotypy or other abnormal movements apparent. Mood: "Okay but very sad, not as sad as yesterday." Affect: Mildly anxious, constricted but brightens appropriately, mood congruent , non-labile, well related. Thought process: Logical, linear and goal-directed. Thought content: No SI/HI/AVH/SIB. No apparent grandiosity, delusions, paranoia , obsessions, ruminations. Cognition: No apparent deficits in memory, attention, concentration. Insight: Fair. Judgment: Fair. A&P: 52-year-old female with depression, opiate use disorder, Lyme disease presenting with increased anxiety and opiate withdrawal, BAL 351 and likely baclofen overdose prior to admission. Started clonidine and hydroxyzine over the weekend and metoprolol was DC'd, however blood pressures have been running in the 90s/60s. Patient agreement with decreasing frequency of clonidine to 3 times a day and encouraged use of when necessary's for symptom management. -Maintain safety, every 15 minute checks -Change in clonidine to 3 times a day incentive 4 times a day due to borderline low BP -Continue other medications as above -DC CIWA -plan for IOP after DC -Continue plan
[2017-11-26 08:34] VITALS: BP 90/56
[2017-11-26 08:36] VITALS: BP 90/56
[2017-11-26 12:07] VITALS: BP 108/66
[2017-11-26 15:58] VITALS: BP 123/80
[2017-11-26 20:00] VITALS: BP 104/65
--- NOTE | 2017-11-26 20:24 | CP SOUTH PROGRESS NOTE PSYCH ---
Psych (Inpt) Progress Note Progress Note Include the following elements, when applicable: Involvement in the active treatment of the patient with behavioral observations of the patient and the patient's response to the treatment. Review of the ongoing treatment process in the context of the treatment plan. Indication of how multi-disciplinary staff members are carrying out the treatment plan. Plans for future interventions and recommendations for revision of the treatment plan. Liaison with other physicians/providers. Progress Note: The patient was seen one-to-one and discussed with the nursing staff. The patient is a 52 years old female hospitalized after an intentional overdose. She has a history of depression, suicidal ideation, suicide attempts. She has difficulty walking and poor balance as a result of injuries after she jumped off the roof in a suicide attempt. Today she reports feeling "very very sad, I did not feel so sad in a long time may be never". Between tears she says that she has multiple reasons to be grateful for and to live for, including children, her grandchildren, her . The patient reports the clonidine helps with pain and anxiety, she does not have signs/symptoms of withdrawal from opioids nor alcohol. She reports family history of mood disorders. She said she wanted to feel "normal and enjoy life". The patient stated that she did not want to . We discussed about potential augmentation of the antidepressant by using lithium or Abilify. We discussed about lithium's correlation with reduced incidence of suicide. She says that her sister is diagnosed with depression and takes lithium with good effect. The patient agreed to D/C ibuprofen, start lithium carbonate, and continue the other medication as it was prescribed. We will continue present medication regimen, observation, symptom monitoring. The patient will be followed up daily by the unit psychiatrist.
[2017-11-27 08:43] VITALS: BP 97/64
--- NOTE | 2017-11-27 11:29 | SOCIAL WORKER PROG NOTE PSYCH ---
Social Work Progress Note Progress Note Dr. Good and I met with Alida together. Alida informed Dr. Good the reason she was here was because she "tried to kill herself." I asked her to clarify that, as she told me last week she wasn't trying to kill herself. She said after talking to her hearing some of what she was saying. She appeared less in denial over what was happening. She said being here over the weekend has brought her feelings to the forefront and she is trying to deal with them. She reports feeling sad, anxious, hopeless, worthless, helpless, and guilty. She denies SI, but when asked is she wants to be ? She said yes. She is oriented x3. Energy below normal, appetite good. Sleeping well. She doesn't feel ready to go home. She doesn't feel "balanced in her head." She asked about possibly going to longer term care like a rehab. Told her I would look into that for her and give her some info. She feels her really wants her to go somewhere else from here. We talked about having another family meeting in person in possible. She hasn't spoken with her daughters and may be avoiding them. She expressed how ashamed and embarrassed she feels. Gave Alida a couple of rehab options to look over- [facility] and [facility]. Called Mr. Malloy and scheduled a family meeting for tomorrow at 2:30pm. Gave him an update on progress.
[2017-11-27 12:20] VITALS: BP 90/58
[2017-11-27 15:55] VITALS: BP 93/59
--- NOTE | 2017-11-27 17:54 | CP SOUTH PROGRESS NOTE PSYCH ---
Psych (Inpt) Progress Note Progress Note Include the following elements, when applicable: Involvement in the active treatment of the patient with behavioral observations of the patient and the patient's response to the treatment. Review of the ongoing treatment process in the context of the treatment plan. Indication of how multi-disciplinary staff members are carrying out the treatment plan. Plans for future interventions and recommendations for revision of the treatment plan. Liaison with other physicians/providers. Progress Note: Medication list reviewed. Case and treatment plan discussed in team meeting. Staff reports that the patient is denying suicidal ideation. Here with depression and alcohol use. She may have overdosed with baclofen prior to admission but denied it. She sustained a back injury from jumping from a second story in a suicide attempt in May 2017. Described as very anxious, almost panicky. Had a phone conference call with on Sunday and patient was tearful and upset during that call. Patient was placed on clonidine but dose was reduced because of low blood pressure. Patient seen at 10:11 AM with social service director Margot. Patient is a casually dressed white female. Reports she jumped off a roof in May 2017. States she is here because she tried to kill herself. States she is just not happy. Not feeling ready for discharge today. Does not feel 100% balanced in her head. She felt depressed on Sunday and Sunday. Reports recognizing hopelessness for the first time in her life and has admitted it to herself and reports she is learning here to be more forthcoming about her feelings. Affect is calm and blunted to tearful. Tolerating medications well. Mood is sad but states she covers it up all the time. Rates sad mood 6-7/10 and anxiety 7/10. Feels hopeless, helpless, worthless and guilty. Denies active suicidal ideation. Reports passive suicidal ideation. Gives a safety promise for here. Denies homicidal ideation. Denies auditory and visual hallucinations and paranoid ideation. Oriented 3 except gives the date as 11/22/17. Reports sleep is very good, appetite is too good and energy is not normal, below normal. Patient seems interested in going to a substance rehab program. IMPRESSION: Slow progress. Continue present treatment plan. Reports ongoing passive suicidal ideation. At this point we will stop Lexapro. We will check a lithium level in the morning. We will increase Cymbalta dose to 60 mg daily and reduce clonidine further to 0.05 mg 3 times daily.
[2017-11-27 19:51] VITALS: BP 127/77
[2017-11-28 08:12] VITALS: BP 96/53
[2017-11-28 12:16] VITALS: BP 117/72
--- NOTE | 2017-11-28 13:32 | SOCIAL WORKER PROG NOTE PSYCH ---
Social Work Progress Note Progress Note Confirmed with Alida for the 2:30 family meeting with her . She didn't understand why we had to have another conversation with her . We talked about it for a few minutes and then she seemed okay. I asked if she had talked with her about the rehabs pamphlets that I gave her? She said she did and they were both ambivalent about it and may go with the idea of just going to IOP. She said that we will talk more about it at the meeting. She continues to say that she isn't quite ready to go home. I told her we have her down to d/c on Sunday so we are hoping she will be ready by then. Rec'd a voicemail from Greg authorizing 2 units with review on 11/29. Family meeting held with Alida and her . Dr. Good was also in attendance for most of the meeting. Dr. Good reviewed current medications and talked about having a cardiolgist consult just to make sure there is nothing medical going on that is heart related. Alida will most likely have an echocardiogram of her heart. We talked about the benefits of continued tx at a rehab vs. returning home right away. Her appears frustrated with the insurance process and stated that the last time they only paid for 2 weeks and then she returned home. Alida has done rehabs in the past, but never continues with an aftercare plan like an IOP when done. Talked about the importance of continued tx and recognizing this as a disease that needs constant monitoring. Alida has never done AA meetings either. Discussed the importance of getting involved with AA for support. Her was asking questions about GPS monitoring devices. He feels she can't be trusted at home and that he needs someone to keep tabs on her. We talked about the role addiction plays on the family and how ultimately he does not have control over what she does. This is up to her. Encouraged Kareem for his own support surrounding his frustrations. Alida was very emotional at the meeting, very tearful. She talks about wanting to ensure everyone else is happy. She seems secondary to everyone else. She and her decided that it would be best to pursue rehab even if it is for a couple of weeks. I told her I would help her look into a few places and we would work on this together. She seemed appreciative. Her and her took a few minutes alone to talk after the meeting.
[2017-11-28 16:08] VITALS: BP 98/55
--- NOTE | 2017-11-28 18:10 | CP SOUTH PROGRESS NOTE PSYCH ---
Psych (Inpt) Progress Note Progress Note Include the following elements, when applicable: Involvement in the active treatment of the patient with behavioral observations of the patient and the patient's response to the treatment. Review of the ongoing treatment process in the context of the treatment plan. Indication of how multi-disciplinary staff members are carrying out the treatment plan. Plans for future interventions and recommendations for revision of the treatment plan. Liaison with other physicians/providers. Progress Note: Case and treatment plan discussed in team meeting. [place] level is 0.6. Staff reports that the patient says her mood is improving. Wants to continue her care at a long-term rehab. Family meeting was scheduled with for 2:30 PM. Clonidine was held because of low blood pressure and dizziness. I have stopped the clonidine. Patient seen at 2:10 PM. States she is okay but jittery and she does not understand why. States if she were discharged today, she still does not trust herself at home not to drink. Reports she used alcohol because of anxiety. States that her drug of choice was Vicodin or Percocet. Last use of these was in May 2017. Patient apparently manifests her anxiety as chest pounding and hearing her pulse in her ears. She has had this for months. Rates sad mood 4/10 and anxiety 7/10. Denies feeling hopeless or helpless. Does feel worthless and guilty. Denies active and passive suicidal ideation. Denies homicidal ideation. Denies auditory and visual hallucinations and paranoid ideation. Reports sleep is great and appetite is fine. Reports energy is sluggish but improving. Tolerating medications well. She would like lithium dose increase, so we are changing dose to 300 mg qAM and 450 mg qPM. I attended family meeting with patient, and social service manager, Margot. Apparently after patient jumped off the roof and was treated medically, she did not admit that it was an intentional suicide attempt. Consequently, she did not receive psychiatric treatment at the time. After her last rehab, she apparently had minimal in-home services but did not attend other treatment. IMPRESSION: Slow progress. Continue present treatment plan. We are looking into placing the patient at an inpatient rehab. Anticipate discharge on Sunday. I have requested cardiology consultation due to report of differing blood pressures between the arms, palpitations and hearing her pulse in her ears.
[2017-11-28 19:55] VITALS: BP 122/74
[2017-11-29 08:11] VITALS: BP 110/70
--- NOTE | 2017-11-29 08:44 | Cons- Cardiology ---
General Information and HPI Consulting Request Date of Consult: 11/29/17 Requested By: Fredis Good MD Reason for Consult: Heart murmur, differential blood pressure both arms Source of Information: patient, old records Exam Limitations: clinical condition, poor historian History of Present Illness: This is a 52-year-old female who was admitted to Inpatient Psychiatry with alcohol intoxication and possible overdose on baclofen. Consult was called because an aide observed that her blood pressure was different in both arms. The patient admits to a heart murmur from youth. She does not remember a cardiac evaluation for this. 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 She had no chest pains difficulty breathing or palpitations. No history of syncope. In May apparently she hurt her back and thereafter she has been not very active since then. However she complains of no chest pains or unusual shortness of breath and no palpitations. She admits to hypertension but has been taken off medications. No history of smoking, diabetes, no significant family history for premature coronary artery disease. No medical problems except for remote history of hypertension. Allergies/Medications Allergies: Coded Allergies: erythromycin base (Intermediate, GI DISTRESS 11/20/17) Home Med List: Baclofen 10 MG TABLET 1 TAB PO TID PAIN CONTROL (Reported) Bupropion HCl (Bupropion XL) 150 MG TAB.ER.24H 300 MG PO DAILY MOOD STABILITY (Reported) Escitalopram Oxalate 20 MG TABLET 1 TAB PO D MOOD STABILITY (Reported) Lidocaine 5 % ADH..PATCH 1 UNIT TOP DAILY PAIN CONTROL (Reported) Metoprolol Tartrate 50 MG TABLET 1 TAB PO DAILY AC HEART HEALTH (Reported) Mirabegron (Myrbetriq) 25 MG TAB.ER.24H 1 TAB PO DAILY BLADDER HEALTH ( Reported) Pregabalin (Lyrica) 150 MG CAPSULE 1 CAP PO BID PAIN CONTROL (Reported) Current Medications: Current Medications Sig/Greg Start time Last Medication Dose Route Stop Time Status Admin Acetaminophen 650 MG .STK-MED ONE 11/28 1248 DC PO 11/28 1249 Acetaminophen 650 MG Q4P PRN 11/20 1730 AC 11/28 PO 1249 Al Hydroxide/Mg 30 ML Q4-6 PRN PRN 11/20 1730 AC Hydroxide PO Clonidine 0.05 MG TID 11/27 1400 DC 11/28 PO 1407 Duloxetine HCl 60 MG 0900 05/30 0900 AC 11/29 PO 0826 Gabapentin 600 MG Q4 HRS NEEDED PRN 11/20 1730 AC 11/28 PO 1846 Hydroxyzine HCl 50 MG Q4P PRN 11/27 1030 AC 11/28 PO 2222 Lidocaine 1 PAT Q24H 11/26 1523 AC 11/28 TOP 0816 [place] Carbonate 300 MG 11/29 0800 AC 11/29 PO 0826 [place] Carbonate 450 MG DAILY@11/28 2000 AC 11/28 PO 1943 [place] Carbonate 300 MG BID 11/25 1423 DC 11/28 PO 0813 Magnesium Hydroxide 30 ML AT BEDTIME PRN 11/20 1730 AC PO Mirabegron 25 MG 11/22 0900 AC 11/29 PO 0826 Naltrexone HCl 50 MG 11/23 1015 AC 11/29 PO 0826 Oxybutynin Chloride 5 MG BID 11/26 2100 AC 11/29 PO 0826 Pregabalin 100 MG BID 11/20 2100 AC 11/29 PO 0828 Trazodone HCl 50 MG AT BEDTIME 11/20 2100 AC 11/28 PO 2123 Review of Systems Review of Systems Constitutional: Reports: see HPI. EENTM: Denies: no symptoms. Cardiovascular: Reports: see HPI. Respiratory: Denies: no symptoms. GI: Denies: no symptoms. Genitourinary: Denies: no symptoms. Musculoskeletal: Denies: no symptoms. Skin: Denies: no symptoms. Neurological/Psychological: Reports: no symptoms. Past History Travel History Traveled to [place] past 21 day No Medical History Neurological: NONE EENT: NONE Cardiovascular: hypertension Renal: neurogenic bladder Musculoskeletal: chronic back pain Psychiatric: alcohol dependence, anxiety, depression Surgical History Surgical History: non-contributory Psychosocial History Services at Home: None ETOH Use: heavy use Employment History Employment: Unemployed Exam & Diagnostic Data Vital Signs and I&O Vital Signs Date Time Temp Pulse Resp B/P B/P Pulse O2 O2 Flow FiO2 Mean Ox Delivery Rate 11/29 0811 98.9 68 110/70 11/28 1955 99.1 77 122/74 11/28 1608 96 98/55 11/28 1407 61 117/72 11/28 1216 61 117/72 Physical Exam: On physical exam she appeared comfortable. The examination was held in the presence of a staff member and exam regular room. Head normocephalic atraumatic, blood pressure was 110/70 in the right arm and 106/70 in the left arm. Pulses were equal bilaterally. Eyes sclera anicteric conjunctiva showed no pallor extraocular muscles were normal Neck no jugular venous distention no thyroid masses no palpable nodes. No subclavian bruits. No carotid bruits Chest lungs were clear bilaterally Heart regular rhythm with a grade 2/6 ejection systolic murmur Abdomen soft no organomegaly bowel sounds normal Extremities no clubbing cyanosis or edema Neurological no gross motor or sensory deficits Labs/Jeyson Results: Laboratory Tests 11/28 0630 Toxicology [place] (0.6 - 1.2 mmol/L) 0.6 Diagnostic Data EKG Results Not done CXR Results Not done Assessment/Plan Assessment/Plan In summary this 52-year-old female was admitted with possible drug overdose and alcohol intoxication. She has chronic back pain from a back injury falling off a roof. On my examination I did not appreciate any difference in pulse or blood pressure recordings of significance in both arms. She does have a cardiac murmur which I believe is functional but I would prefer an echocardiogram to fully evaluate this. For completeness I would also suggest a formal EKG. I discussed this with her medical nurse and they will also review this consultation. If the echocardiogram reports and EKG reports are within normal limits no further follow-up will be suggested. Thank you for allowing us the opportunity of participating in her care Consult Acknowledgment - Thank you for your consult request.
--- NOTE | 2017-11-29 10:50 | SOCIAL WORKER PROG NOTE PSYCH ---
See Addendum Social Work Progress Note Progress Note Alida reported feeling a little better today. She talked about how things ended well yesterday between her and her . She asked what I thought about some of his comments. I asked her if he had ever chained her up? She said no. She went on to say that he is really good to her, but he gets very serious and needs to know all the details. Talked about pursuing rehabs. She signed releases for [facility], and [facility]. I faxed clinical to [facility] and left a message with Bert Magana from [facility] [place] and I later connected with Bert Magana by phone. He explained some of their programs. He is recommending their [facility]. Bert got some background info and insurance info and will be checking insurance for coverage and getting back to Alida later today. Alida was taken up to get a echocardiogram. Upon return from her test Alida was informed that her insurance is good for her to go to [facility]. Asked how she felt about proceeding with that plan? She wanted to confirm the plan with her . We made a call to her together and discussed it. Mr. Malloy was given Bert Magana's phone number so he could ask questions directly about the program and insurance coverage. He will let us know after talking with him if he is on board with their program. I later received a phone call from Bert Magana stating he spoke with Mr. Malloy and he is on board with this plan. He advised Alida to call the admission's office to complete the clinical screening and asked for additional clinical to be faxed to them. Alida was given this information and encouraged to call admissions, which she did. Bert later confirmed they received the information I faxed and her screening was complete. Mr. Malloy will take Alida to [facility] in [place] to get on a 4:57pm flight to [place]. At the airport she will be met by an [facility] entry level marketing representative.
[2017-11-29 12:11] VITALS: BP 116/67
--- NOTE | 2017-11-29 12:43 | ECHOCARDIOGRAM REPORT ---
YAN PRABHAKAR Age: 52 : 1965 Gender: F Exam Date: 11/29/2017 10:23 Exam Location: [facility] Ht (in): 61 Wt (lb): 102 BSA: 1.41 BP: 110 / 70 Ordering Physician: Garcia Gilmore MD Referring Physician: Garcia Gilmore MD Technologist: Ean Pickering [facility] Room Number: B7-01 Indications: Murmur Rhythm: Sinus Technical Quality: fair FINDINGS Left Ventricle Normal size left ventricle. Left ventricular wall thickness at upper limits of normal. Normal left ventricular ejection fraction estimated at 65-70%. Hyperdynamic left ventricular systolic function. Right Ventricle Normal right ventricular size and function. Right Atrium Normal right atrial size. Left Atrium Normal left atrial size. Mitral Valve Mitral valve normal in structure and function. Trace mitral regurgitation. Aortic Valve Aortic valve is normal in structure and function. Tricuspid Valve Tricuspid valve is normal in structure and function. Pulmonic Valve Pulmonic valve not well visualized, grossly normal. Pericardium No pericardial effusion. Great Vessels Normal size aortic root. CONCLUSIONS Normal overall left and right ventricular systolic function. No significant valvular abnormalities noted. Garcia Gilmore M.D. (Electronically Signed) Final Date: 29 Nov 2017 12:42 MEASUREMENTS (Male / Female) Normal Values 2D ECHO LV Diastolic Diameter PLAX 3.7 cm 4.2 - 5.9 / 3.9 - 5.3 cm LV Systolic Diameter PLAX 2.4 cm 2.1 - 4.0 cm LV Fractional Shortening PLAX 35.1 % 25 - 46 % LV Ejection Fraction 2D Teich 65.3 % IVS Diastolic Thickness 1.2 cm LVPW Diastolic Thickness 1.0 cm LV Relative Wall Thickness 0.6 RV Internal Dim ED PLAX 2.8 cm 1.9 - 3.8 cm LVOT Diameter 1.8 cm Aortic Root Diameter 2.5 cm LA Systolic Diameter LX 3.3 cm 3.0 - 4.0 / 2.7 - 3.8 cm Ascending Aorta Diameter 2.9 cm DOPPLER AV Peak Velocity 205.0 cm/s AV Peak Gradient 16.8 mmHg AV Mean Velocity 122.0 cm/s AV Mean Gradient 7.0 mmHg AV Velocity Time Integral 37.7 cm LVOT Peak Velocity 147.0 cm/s LVOT Peak Gradient 8.6 mmHg LVOT Mean Velocity 82.7 cm/s LVOT Mean Gradient 3.0 mmHg LVOT Velocity Time Integral 29.4 cm LVOT Stroke Volume 74.8 cm AV Area Cont Eq vti 2.0 cm AV Area Cont Eq pk 1.8 cm MV Peak Velocity 96.5 cm/s MV Peak Gradient 3.7 mmHg MV Mean Velocity 57.8 cm/s MV Mean Gradient 2.0 mmHg Mitral E Point Velocity 86.4 cm/s Mitral A Point Velocity 80.9 cm/s Mitral E to A Ratio 1.1 MV PHT Velocity 103.0 cm/s MV Deceleration [place] 386.0 cm/s MV Pressure Half Time 80.1 ms MV Area PHT 2.7 cm MV Deceleration Time 222.0 ms PV Peak Velocity 112.0 cm/s PV Peak Gradient 5.0 mmHg PV Mean Velocity 67.9 cm/s PV Mean Gradient 2.0 mmHg PV Velocity Time Integral 27.7 cm LV E' Lateral Velocity 8.8 cm/s Mitral E to LV E' Lateral Ratio 9.9 LV E' Septal Velocity 7.7 cm/s Mitral E to LV E' Septal Ratio 11.2
[2017-11-29 15:44] VITALS: BP 112/69
--- NOTE | 2017-11-29 17:13 | CP SOUTH PROGRESS NOTE PSYCH ---
Psych (Inpt) Progress Note Progress Note Include the following elements, when applicable: Involvement in the active treatment of the patient with behavioral observations of the patient and the patient's response to the treatment. Review of the ongoing treatment process in the context of the treatment plan. Indication of how multi-disciplinary staff members are carrying out the treatment plan. Plans for future interventions and recommendations for revision of the treatment plan. Liaison with other physicians/providers. Progress Note: Case and treatment plan discussed in team meeting. Staff reports that the patient is denying SI. Afraid of relapsing. We are making inpatient rehab referrrals. Dr. Garcia Gilmore's cardiology consultation appreciated. Echocardiogram was unremarkable and I informed the patient of this. Patient seen at 1:47 pm. Was in group prior to meeting with me in office. States she is doing fine. Asking if naltrexone dose can be increased but it is at PDR maximum. Asking about Suboxone. I suggested she can pursue this after discharge, as we would not start it without Suboxone follow up in place. Hoping to go to a [place] rehab tomorrow. Affect is calm and blunted. Mood is good. Sad 5/10. Anxiety ~6-7/10. Denies feeling hopeless. Feels helpless and worthless a little bit. Feels guilty. Denies active and passive SI. Denies HI , AH, VH and PI. Reports she slept very well. Reports she is eating very well. Energy: ~5/10 with 10 being best. Tolerating medications well, without complaint. IMPRESSION: Slow progress. Continue present treatment plan. Anticipate discharge tomorrow to go to a rehab.
[2017-11-29 20:04] VITALS: BP 136/75
[2017-11-30 09:02] VITALS: BP 97/59
--- NOTE | 2017-11-30 10:36 | SOCIAL WORKER PROG NOTE PSYCH ---
Social Work Progress Note Progress Note Alida is prepared to leave today and go to rehab in [place]. She reports decreased anxiety and is feeling much better. She said the anxiety she has is "manageable." She said her mood has improved and she feels less sad. She was very appreciative of the help she has received here and stated that we helped provide strength and encouragement for her. She is feeling hopeful and much more postive about things. Looking towards the future and getting back to work eventually. Encouraged her to focus on making healthy choices for today and not get too ahead of herself. Called Bert Magana with [facility]. Let him know that the doctor will only write 2 weeks worth of meds. He was fine with that. Asked if everything was okay with the insurance? As Alida said this was still up in the air. He said they will get the auth once she gets there and it shouldn't be a problem. He said if for whatever reason they don't approve any services, she would be awarded a scholarship. Alida's picked her up at 2pm. All info faxed to [facility].
[2017-11-30] MEDS ORDERED: DULOXETINE HCL60 MG PO (12:11)
[2017-11-30] MEDS ORDERED: NALTREXONE HCL50 M1 PO (12:11)
[2017-11-30] MEDS ORDERED: LIDOCAINE1 EACH TOP (12:11)
[2017-11-30] MEDS ORDERED: TRAZODONE HCL50 M1 PO (12:11)
[2017-11-30] MEDS ORDERED: HYDROXYZINE HCL50 M1 PO (12:11)
[2017-11-30] MEDS ORDERED: LITHIUM CARBON150 M1 PO (12:11)
[2017-11-30] MEDS ORDERED: OXYBUTYNIN CHLOR5 M2 PO (12:11)
[2017-11-30] MEDS ORDERED: MYRBETRIQ25 M1 PO (12:11)
[2017-11-30 12:25] VITALS: BP 143/79
--- NOTE | 2017-11-30 12:55 | Patient Discharge Instructions ---
Psych Discharge Inst General Discharge Information Reason for Admission: Possibly overdosed with Baclofen. Was intoxicated with BAL 351. Reported increased depression, SI and feeling hopeless and helpless. Psy Discharge Primary Diag+ Unspecified depression Psy Discharge Secondary Diag+ Alcohol use disorder Hx opiate abuse Recent back surgery Possible Baclofen OD Hx Lyme disease Hx hypertension Summary Tests/Major Procedures Lab ALT 41 U/L 11/19/171929 AST 57 U/L H 11/19/171929 Albumin 5.4 g/dL H 11/19/171929 Anion Gap 21 H 11/19/171929 BUN 10 mg/dL 11/19/171929 Calcium 9.6 mg/dL 11/19/171929 Carbon Dioxide 21 mmol/L L 11/19/171929 Chloride 97 mmol/L L 11/19/171929 Cholesterol 195 MG/DL 11/22/17 0557 Cholesterol/HDL Ratio 3 % 11/22/17 0557 Creatinine 0.6 mg/dL 11/19/171929 Estimated GFR > 60 ml/min 11/19/171929 Glucose 111 mg/dL H 11/19/171929 HDL Cholesterol 59 mg/dL 11/22/17 0557 Hemoglobin A1c 5.2 % 11/22/17 0557 LDL Cholesterol, Calc 121 mg/dL 11/22/17 0557 Potassium 4.5 mmol/L 11/19/171929 Sodium 139 mmol/L 11/19/171929 TSH 2.710 uIU/mL 11/22/17 0557 Total Protein 8.3 g/dL H 11/19/171929 Triglycerides 75 mg/dL 11/22/17 0557 Absolute Granulocytes 10.7 /CUMM H 11/19/171929 Gran % 76.2 % H 11/19/171929 Hct 41.6 % 11/19/171929 Hgb 14.1 G/DL 11/19/171929 Lymphocytes % 19.7 % L 11/19/171929 Plt Count 395 /CUMM 11/19/171929 RDW 14.7 % H 11/19/171929 WBC 14.0 /CUMM H 11/19/171929 Acetaminophen < 10.0 ug/mL L 11/19/171929 [place] 0.6 mmol/L 11/28/1730 Serum Alcohol 352.0 MG/DL 11/19/171929 EKG 11/19/17: baseline artifact/wander, sinus rhythm @ 93, probable left atrial abnormality, incomplete right bundle branch block, minor changes since previous tracking, abnormal EKG, QT 368, QTc 458. SERVICE DATE: 11/29/17 EXAM TYPE: CARD - ECHOCARDIOGRAM YAN PRABHAKAR Age: 52 : 1965 Gender: F Exam Date: 11/29/2017 10:23 Exam Location: [facility] Ht (in): 61 Wt (lb): 102 BSA: 1.41 BP: 110 / 70 Ordering Physician: Garcia Gilmore MD Referring Physician: Garcia Gilmore MD Technologist: Ean Pickering [facility] Room Number: B7-01 Indications: Murmur Rhythm: Sinus Technical Quality: fair FINDINGS Left Ventricle Normal size left ventricle. Left ventricular wall thickness at upper limits of normal. Normal left ventricular ejection fraction estimated at 65-70%. Hyperdynamic left ventricular systolic function. Right Ventricle Normal right ventricular size and function. Right Atrium Normal right atrial size. Left Atrium Normal left atrial size. Mitral Valve Mitral valve normal in structure and function. Trace mitral regurgitation. Aortic Valve Aortic valve is normal in structure and function. Tricuspid Valve Tricuspid valve is normal in structure and function. Pulmonic Valve Pulmonic valve not well visualized, grossly normal. Pericardium No pericardial effusion. Great Vessels Normal size aortic root. CONCLUSIONS Normal overall left and right ventricular systolic function. No significant valvular abnormalities noted. Garcia Gilmore M.D. (Electronically Signed) Final Date: 29 Nov 2017 12:42 MEASUREMENTS (Male / Female) Normal Values 2D ECHO LV Diastolic Diameter PLAX 3.7 cm 4.2 - 5.9 / 3.9 - 5.3 cm LV Systolic Diameter PLAX 2.4 cm 2.1 - 4.0 cm LV Fractional Shortening PLAX 35.1 % 25 - 46 % LV Ejection Fraction 2D Teich 65.3 % IVS Diastolic Thickness 1.2 cm LVPW Diastolic Thickness 1.0 cm LV Relative Wall Thickness 0.6 RV Internal Dim ED PLAX 2.8 cm 1.9 - 3.8 cm LVOT Diameter 1.8 cm Aortic Root Diameter 2.5 cm LA Systolic Diameter LX 3.3 cm 3.0 - 4.0 / 2.7 - 3.8 cm Ascending Aorta Diameter 2.9 cm DOPPLER AV Peak Velocity 205.0 cm/s AV Peak Gradient 16.8 mmHg AV Mean Velocity 122.0 cm/s AV Mean Gradient 7.0 mmHg AV Velocity Time Integral 37.7 cm LVOT Peak Velocity 147.0 cm/s LVOT Peak Gradient 8.6 mmHg LVOT Mean Velocity 82.7 cm/s LVOT Mean Gradient 3.0 mmHg LVOT Velocity Time Integral 29.4 cm LVOT Stroke Volume 74.8 cm AV Area Cont Eq vti 2.0 cm AV Area Cont Eq pk 1.8 cm MV Peak Velocity 96.5 cm/s MV Peak Gradient 3.7 mmHg MV Mean Velocity 57.8 cm/s MV Mean Gradient 2.0 mmHg Mitral E Point Velocity 86.4 cm/s Mitral A Point Velocity 80.9 cm/s Mitral E to A Ratio 1.1 MV PHT Velocity 103.0 cm/s MV Deceleration [place] 386.0 cm/s MV Pressure Half Time 80.1 ms MV Area PHT 2.7 cm MV Deceleration Time 222.0 ms PV Peak Velocity 112.0 cm/s PV Peak Gradient 5.0 mmHg PV Mean Velocity 67.9 cm/s PV Mean Gradient 2.0 mmHg PV Velocity Time Integral 27.7 cm LV E' Lateral Velocity 8.8 cm/s Mitral E to LV E' Lateral Ratio 9.9 LV E' Septal Velocity 7.7 cm/s Mitral E to LV E' Septal Ratio 11.2 DICTATED BY: Garcia Gilmore MD DATE/TIME DICTATED:11/29/171241 SPRAY UNIT FEEDER:HAMLET DATE/TIME TRANSCRIBED:11/29/171241 CONFIDENTIAL, DO NOT COPY WITHOUT APPROPRIATE AUTHORIZATION. <Electronically signed in Other Vendor System> SIGNED BY: Garcia Gilmore MD 11/29/171242 Studies Pending at [place]: None. Patient Instructions Contact Information Your Psychiatrist on [facility] was Fredis Good MD * If you are experiencing an emergency related to this hospitalization, please call [phone] to contact the treating psychiatrist or the psychiatrist-on- call. * To Request a copy of your medical records, please contact the Medical Records Department at [phone]. * To request results of studies pending at the time of discharge, please call [phone]. * Continue your Medications until directed to stop by your Healthcare provider. General Medication Information Please continue to take your new medications and your continued home medications , unless otherwise indicated on your discharge medication list, or unless directed by your MD or TELEGRAPH REPEATER INSTALLER to stop them. Special Instructions Diet Regular Activity Normal Other Inst/Recommendations Follow up with PCP about EKG (copy given to patient on d/c). - Tobacco Use Treatment Offered Post DC Medications Offered: Not Applicable Post DC Tobacco Treatment Plan: Not Applicable - EtOH/Drug Use D/O Treatment Offered Post DC Medications Offered: Script Given-See Med List Post DC EtOH/SubAbuse [place] Plan: Other SubAbuse/Dual Pgm (Steps to Recovery in [facility] ) Program Appt Date: 11/30/17 Program Appt Time: 1700 Metabolic Screening ([x]) Not Applicable, patient not on a neuroleptic. OR () Patient on a neuroleptic(s) . Enter below results for Hemoglobin A1C, and lipid panel if obtained during the last 365 days. BMI: 19.400 Blood Pressure: 143/79 Laboratory Results From [facility] EHR (If applicable): Advance Directives Does the Patient have Medical Advance Directives No/Refused further info Does Pt have Psychiatric Advance Directives? No/Refused further info Does Patient have a Designated Surrogate Decision Maker: No Information About Psychiatric Advance Directives Provided? Refused Discharge Plan Post Hospital Treatment Plan: Steps to Recovery in [facility] (today, 11/30/17). Please have lithium levels monitored.
--- NOTE | 2017-11-30 14:37 | SOCIAL WORKER PROG NOTE PSYCH ---
Social Work Progress Note Faxed Referral(s) Referred To: [facility] Documents sent: Health Summary, W10 Faxed to: admissions Fax #: [phone] Faxed by: Margot Amin Date faxed: 11/30/17 Time Faxed: [phone]
--- NOTE | 2017-11-30 16:33 | CP SOUTH PROGRESS NOTE PSYCH ---
Psych (Inpt) Progress Note Progress Note Include the following elements, when applicable: Involvement in the active treatment of the patient with behavioral observations of the patient and the patient's response to the treatment. Review of the ongoing treatment process in the context of the treatment plan. Indication of how multi-disciplinary staff members are carrying out the treatment plan. Plans for future interventions and recommendations for revision of the treatment plan. Liaison with other physicians/providers. Progress Note: Case and treatment plan discussed in team meeting. Staff reports that the patient is denying suicidal ideation. Doing well. Looking forward to discharge. Stating she is ready to go. Will be taking a plane ride to go to [facility] in [place]. is picking her up at 2 PM. Patient seen at 12:57 PM. Patient was talking with a peer prior to meeting with me in office. Reports she is well. Affect is calm and euthymic. Reports mood is very good. Rates sad mood 2/10 and anxiety about 8/10. Denies feeling hopeless, helpless or worthless. Does feel guilty. Denies active and passive suicidal ideation. Denies homicidal ideation. Denies auditory and visual hallucinations and paranoid ideation. Reports sleep was complicated by leg cramps or spasms that Kept her up last 3 nights but states that she slept enough , 7 hours. She has had these leg cramps or spasms since her fall injury. Appetite is reported as good. Reports energy is good, better than it was yesterday. Tolerating medications except for hand tremor, which I explained is likely due to lithium. Feels ready and safe for discharge. IMPRESSION: Condition improved. Okay for discharge today. will pick her up and patient will take an airplane to [place] to go to rehab at [facility].
--- NOTE | 2017-11-30 16:42 | DISCHARGE SUMMARY REPORT-PSYCH ---
Visit Information Visit Dates/Diagnosis' Admission Date: 11/20/17 Discharge Date: 11/30/17 Reason for Admission: Possibly overdosed with Baclofen. Was intoxicated with BAL 351. Reported increased depression, SI and feeling hopeless and helpless. Psy Discharge Primary Diag: Unspecified depression Psy Discharge Secondary Diag: Alcohol use disorder Hx opiate abuse Recent back surgery Possible Baclofen OD Hx Lyme disease Hx hypertension Hospital Course Significant Lab Findings: Lab ALT 41 U/L 11/19/171929 AST 57 U/L H 11/19/171929 Albumin 5.4 g/dL H 11/19/171929 Anion Gap 21 H 11/19/171929 BUN 10 mg/dL 11/19/171929 Calcium 9.6 mg/dL 11/19/171929 Carbon Dioxide 21 mmol/L L 11/19/171929 Chloride 97 mmol/L L 11/19/171929 Cholesterol 195 MG/DL 11/22/17 0557 Cholesterol/HDL Ratio 3 % 11/22/17 0557 Creatinine 0.6 mg/dL 11/19/171929 Estimated GFR > 60 ml/min 11/19/171929 Glucose 111 mg/dL H 11/19/171929 HDL Cholesterol 59 mg/dL 11/22/17 0557 Hemoglobin A1c 5.2 % 11/22/17 0557 LDL Cholesterol, Calc 121 mg/dL 11/22/17 0557 Potassium 4.5 mmol/L 11/19/171929 Sodium 139 mmol/L 11/19/171929 TSH 2.710 uIU/mL 11/22/17 0557 Total Protein 8.3 g/dL H 11/19/171929 Triglycerides 75 mg/dL 11/22/17 0557 Absolute Granulocytes 10.7 /CUMM H 11/19/171929 Gran % 76.2 % H 11/19/171929 Hct 41.6 % 11/19/171929 Hgb 14.1 G/DL 11/19/171929 Lymphocytes % 19.7 % L 11/19/171929 Plt Count 395 /CUMM 11/19/171929 RDW 14.7 % H 11/19/171929 WBC 14.0 /CUMM H 11/19/171929 Acetaminophen < 10.0 ug/mL L 11/19/171929 [place] 0.6 mmol/L 11/28/17 0630 Serum Alcohol 352.0 MG/DL 11/19/171929 EKG 11/19/17: baseline artifact/wander, sinus rhythm @ 93, probable left atrial abnormality, incomplete right bundle branch block, minor changes since previous tracking, abnormal EKG, QT 368, QTc 458. SERVICE DATE: 11/29/17 EXAM TYPE: CARD - ECHOCARDIOGRAM YAN PRABHAKAR Age: 52 : 1965 Gender: F Exam Date: 11/29/2017 10:23 Exam Location: [facility] Ht (in): 61 Wt (lb): 102 BSA: 1.41 BP: 110 / 70 Ordering Physician: Garcia Gilmore MD Referring Physician: Garcia Gilmore MD Technologist: Ean Pickering [facility] Room Number: B7-01 Indications: Murmur Rhythm: Sinus Technical Quality: fair FINDINGS Left Ventricle Normal size left ventricle. Left ventricular wall thickness at upper limits of normal. Normal left ventricular ejection fraction estimated at 65-70%. Hyperdynamic left ventricular systolic function. Right Ventricle Normal right ventricular size and function. Right Atrium Normal right atrial size. Left Atrium Normal left atrial size. Mitral Valve Mitral valve normal in structure and function. Trace mitral regurgitation. Aortic Valve Aortic valve is normal in structure and function. Tricuspid Valve Tricuspid valve is normal in structure and function. Pulmonic Valve Pulmonic valve not well visualized, grossly normal. Pericardium No pericardial effusion. Great Vessels Normal size aortic root. CONCLUSIONS Normal overall left and right ventricular systolic function. No significant valvular abnormalities noted. Garcia Gilmore M.D. (Electronically Signed) Final Date: 29 Nov 2017 12:42 MEASUREMENTS (Male / Female) Normal Values 2D ECHO LV Diastolic Diameter PLAX 3.7 cm 4.2 - 5.9 / 3.9 - 5.3 cm LV Systolic Diameter PLAX 2.4 cm 2.1 - 4.0 cm LV Fractional Shortening PLAX 35.1 % 25 - 46 % LV Ejection Fraction 2D Teich 65.3 % IVS Diastolic Thickness 1.2 cm LVPW Diastolic Thickness 1.0 cm LV Relative Wall Thickness 0.6 RV Internal Dim ED PLAX 2.8 cm 1.9 - 3.8 cm LVOT Diameter 1.8 cm Aortic Root Diameter 2.5 cm LA Systolic Diameter LX 3.3 cm 3.0 - 4.0 / 2.7 - 3.8 cm Ascending Aorta Diameter 2.9 cm DOPPLER AV Peak Velocity 205.0 cm/s AV Peak Gradient 16.8 mmHg AV Mean Velocity 122.0 cm/s AV Mean Gradient 7.0 mmHg AV Velocity Time Integral 37.7 cm LVOT Peak Velocity 147.0 cm/s LVOT Peak Gradient 8.6 mmHg LVOT Mean Velocity 82.7 cm/s LVOT Mean Gradient 3.0 mmHg LVOT Velocity Time Integral 29.4 cm LVOT Stroke Volume 74.8 cm AV Area Cont Eq vti 2.0 cm AV Area Cont Eq pk 1.8 cm MV Peak Velocity 96.5 cm/s MV Peak Gradient 3.7 mmHg MV Mean Velocity 57.8 cm/s MV Mean Gradient 2.0 mmHg Mitral E Point Velocity 86.4 cm/s Mitral A Point Velocity 80.9 cm/s Mitral E to A Ratio 1.1 MV PHT Velocity 103.0 cm/s MV Deceleration [place] 386.0 cm/s MV Pressure Half Time 80.1 ms MV Area PHT 2.7 cm MV Deceleration Time 222.0 ms PV Peak Velocity 112.0 cm/s PV Peak Gradient 5.0 mmHg PV Mean Velocity 67.9 cm/s PV Mean Gradient 2.0 mmHg PV Velocity Time Integral 27.7 cm LV E' Lateral Velocity 8.8 cm/s Mitral E to LV E' Lateral Ratio 9.9 LV E' Septal Velocity 7.7 cm/s Mitral E to LV E' Septal Ratio 11.2 DICTATED BY: Garcia Gilmore MD DATE/TIME DICTATED:11/29/171241 TAILINGS MAN:HAMLET DATE/TIME TRANSCRIBED:11/29/171241 CONFIDENTIAL, DO NOT COPY WITHOUT APPROPRIATE AUTHORIZATION. <Electronically signed in Other Vendor System> SIGNED BY: Garcia Gilmore MD 11/29/171242 Course Complications: None. Consultations: The patient was seen for admission history and physical by Dr. Goyo Márquez. Please refer to his note for additional information. The patient was seen for cardiology consultation by Dr. Garcia Gilmore. Consultation was requested because mental health tech detected different blood pressures between both arms. Additionally, patient complained of palpitations and hearing her pulse in her ears. Dr. Gilmore detected a murmur which he believed to be functional. Echocardiogram was done and is reported above. Allergies: Coded Allergies: erythromycin base (Intermediate, GI DISTRESS 11/20/17) Hospital Course/TX Response: The patient was monitored on the unit for safety, alcohol withdrawal and mood disorder. She participated in multimodal treatments on the unit. Ativan was available for alcohol withdrawal. [place] carbonate was added for its anti- suicidal property. Wellbutrin was stopped. Lexapro was tapered down and then stopped and patient was treated with Cymbalta with dose tapered up to 60 mg daily. Metoprolol was stopped. The mirabegron, Lyrica and oxybutynin were continued. Naltrexone was ordered for cravings. [place] level is therapeutic. Patient has a mild lithium tremor. Mood and affect have improved. Suicidal ideation has remitted. The patient had a successful couple's meeting with her . The patient has agreed to inpatient rehab at [facility] in [place]. Progress note from date of discharge, 11/30/17: "Case and treatment plan discussed in team meeting. Staff reports that the patient is denying suicidal ideation. Doing well. Looking forward to discharge. Stating she is ready to go. Will be taking a plane ride to go to [facility] in [place]. is picking her up at 2 PM. Patient seen at 12:57 PM. Patient was talking with a peer prior to meeting with me in office. Reports she is well. Affect is calm and euthymic. Reports mood is very good. Rates sad mood 2/10 and anxiety about 8/10. Denies feeling hopeless, helpless or worthless. Does feel guilty. Denies active and passive suicidal ideation. Denies homicidal ideation. Denies auditory and visual hallucinations and paranoid ideation. Reports sleep was complicated by leg cramps or spasms that Kept her up last 3 nights but states that she slept enough , 7 hours. She has had these leg cramps or spasms since her fall injury. Appetite is reported as good. Reports energy is good, better than it was yesterday. Tolerating medications except for hand tremor, which I explained is likely due to lithium. Feels ready and safe for discharge. IMPRESSION: Condition improved. Okay for discharge today. will pick her up and patient will take an airplane to [place] to go to rehab at [facility]." Discharge HBIPS - Tobacco Use Treatment Offered Post DC Medications Offered: Not Applicable Post DC Tobacco Treatment Plan: Not Applicable - EtOH/Drug Use D/O Treatment Offered Post DC Medications Offered: Script Given-See Med List Post DC EtOH/SubAbuse TX Plan: Other SubAbuse/Dual Pgm ([facility]) Program Appt Date: 11/30/17 Program Appt Time: 1700 Metabolic Screening - Screen if on a Neuroleptic Medication - Metabolic screening should include: - Blood Pressure, BMI, Glucose or Hgb A1c, & a - Lipid profile from within the past 365 days. Metabolic Screening ([x]) Not Applicable, patient not on a neuroleptic. OR () Patient on a neuroleptic(s) . Enter below results for Hemoglobin A1C, and lipid panel if obtained during the last 365 days. BMI: 19.400 Blood Pressure: 143/79 Laboratory Results From [facility] EHR (If applicable): Discharge Instructions General Discharge Information Multiple Neuroleptics: ([x]) Not Applicable OR Document below three failed attempts at monotherapy, or a plan to taper to monotherapy, or augmentation of Clozapine. () Discharge Diet Regular Discharge Activity Normal DC Disposition: Going to [facility] in [facility]. Referrals Ordered Referrals Provider Referral 11/30/17 For Groups: [[facility]] Admission to [facility] 11/30/17 [address] [facility] [address] Prescriptions Stop taking the following medications: Baclofen (Baclofen) 10 MG TABLET ORAL THREE TIMES DAILY Qty = 90 Bupropion HCl (Bupropion XL) 150 MG TAB.ER.24H ORAL DAILY Qty = 30 Escitalopram Oxalate (Escitalopram Oxalate) 20 MG TABLET ORAL Every Day Qty = 14 Metoprolol Tartrate (Metoprolol Tartrate) 50 MG TABLET ORAL DAILY BEFORE BREAKFAST Qty = 30 Continue taking these medications: Pregabalin (Lyrica) 150 MG CAPSULE 1 Capsule ORAL TWICE DAILY Qty = 60 Lidocaine (Lidocaine) 5 % ADH..PATCH 1 Unit On the skin DAILY Qty = 14 Comments: Last Taken:11/29/17 Time:3pm This prescription has been renewed Start taking the following new medications: Naltrexone HCl (Naltrexone HCl) 50 MG TABLET 50 Milligram ORAL 0900 Qty = 14 No Refills Comments: Last Taken:11/30/17 Time:8am Duloxetine HCl (Duloxetine HCl) 60 MG CAPSULE.DR 1 Capsule ORAL 0900 Qty = 14 No Refills Comments: Last Taken:11/30/17 Time:8am Trazodone HCl (Trazodone HCl) 50 MG TABLET 1 Tablet ORAL AT BEDTIME as needed for insomnia Qty = 14 No Refills Comments: Last Taken:11/29/17 Time:10pm Hydroxyzine Hydrochloride (Atarax) 50 MG TAB 1 Tablet ORAL THREE TIMES DAILY as needed for anxiety Qty = 42 No Refills Comments: Last Taken:11/30/17 Time:8am Oxybutynin Chloride (Oxybutynin Chloride) 5 MG TABLET 1 Tablet ORAL TWICE DAILY Qty = 28 No Refills Comments: Last Taken:11/30/17 Time:8am [place] Carbonate ([place] Carbonate) 150 MG CAPSULE 1 Capsule ORAL SEE INSTRUCTIONS Qty = 70 No Refills Instructions: Take 2 po qAM (300 mg), take 3 po qPM (450 mg). Comments: Last Taken:11/30/17 Time:8am The following medications have been changed: Old: Mirabegron (Myrbetriq) 25 MG TAB.ER.24H 1 Tablet ORAL DAILY Qty = 90 New: Mirabegron (Myrbetriq) 25 MG TAB.ER.24H 1 Tablet ORAL DAILY Qty = 14 Comments: Last Taken:11/30/17 Time:8am Other Inst/Recommendations Follow up with PCP about EKG (copy given to patient on d/c). Studies Pending at Discharge None. Copies To: [facility]
== END 2017-11-30 14:17 | disposition other institution (70) | DRG 881 ==
LOC: ERH 19:14 → CP SOUTH 11-20 15:54 → ERHI 11-20 15:54 → ENTRNSPT 11-20 16:24 → EDTRNSPTSTS 11-20 16:35 → EDTRNSPT 11-20 16:35 → CP SOUTH 11-20 16:40 → CMPTRNSPT 11-20 16:53 → CP SOUTH 11-27 15:37
PROVIDERS: Nurse Practitioner Psychiatric/Mental Health; Physician Assistant Medical
DX: F32.9 Major depressive disorder, single episode, unspecified (principal); Z72.89 Other problems related to lifestyle; F11.11 Opioid abuse, in remission; Z98.890 Other specified postprocedural states; Z86.19 Personal history of other infectious and parasitic diseases; I10 Essential (primary) hypertension
CPT/HCPCS: 36415; 80307; 93005; 93010; 93306; G0480; J3101